=== PATIENT | male | born 1935 | race Hispanic/Latino ===

== ENCOUNTER → 2021-03-26 | Outpatient (CLI) | payer MEDICARE ==
[~2021-03-26] MED LIST: GADOBENATE DIMEGLUMINE 1 ML IV ONE
[2021-03-26 10:39] LABS: CREATININE, SERUM 0.99 mg/dL (0.72-1.25)
== END ==
LOC: NM 09:30
PROVIDERS: ATTEND Urology
DX: R97.20 Elevated prostate specific antigen [PSA] (principal); M89.9 Disorder of bone, unspecified
CPT/HCPCS: 36415; 72197; 78306; 82565; 84520; A9503; A9577